=== PATIENT | male | born 1960 | race Hispanic/Latino ===

== ENCOUNTER → 2022-10-19 | Day surgery (SDC) | payer BC ==
[~2022-10-19] MED LIST: AMLODIPINE BESYL5 MG PO; GLUCAGON FOR INJ 1 MG VIAL ONE; GLYCOPYRROLATE INJ 0.2 MG/ML VIAL ONE; LACTATED RINGER'S 1,000 ML ONE; LIDOCAINE HCL 2% LOCAL INJ 5 ML SDV VIAL INJ ONE; LISINOPRIL10 MG PO; MIDAZOLAM HCL 2 MG/2 ML VIAL ONE; POVIDONE IODINE 0.05% 0.05 % ML PO ONE; PROPOFOL IV EMULSION 10 MG/ML 20 ML VIAL ONE
[2022-10-19 13:30] VITALS: TEMP 98.2
[2022-10-19 13:56] VITALS: BP 122/80; PULSE 65; RESP 18; O2SAT 100
== END | disposition home or self-care (01) ==
LOC: OR 09:36
PROVIDERS: ATTEND Internal Medicine Gastroenterology
DX: Z12.11 Encounter for screening for malignant neoplasm of colon (principal); D12.3 Benign neoplasm of transverse colon; K29.70 Gastritis, unspecified, without bleeding; K52.9 Noninfective gastroenteritis and colitis, unspecified; K22.70 Barrett's esophagus without dysplasia; K63.3 Ulcer of intestine; K57.30 Diverticulosis of large intestine without perforation or abscess without bleeding; K44.9 Diaphragmatic hernia without obstruction or gangrene; Z98.0 Intestinal bypass and anastomosis status; K59.00 Constipation, unspecified; K64.8 Other hemorrhoids; K76.0 Fatty (change of) liver, not elsewhere classified; I10 Essential (primary) hypertension; E78.5 Hyperlipidemia, unspecified; Z01.810 Encounter for preprocedural cardiovascular examination; Z79.899 Other long term (current) drug therapy; Z68.37 Body mass index [BMI] 37.0-37.9, adult; Z87.891 Personal history of nicotine dependence
CPT/HCPCS: 43239; 45380; 45384; 93005; J1610; J2001; J2250; J2704; J7121; 45378